=== PATIENT | female | born 1980 | race African-American/Black ===

== ENCOUNTER 2016-12-05 14:24 | Emergency (ER) | payer MEDICAID ==
[2016-12-05 15:00] LABS: BASOPHILS 0.1 % (0.0-2.0); EOSINOPHILS 0 % (0-7); HEMATOCRIT 43.7 % (36.0-48.0); HEMOGLOBIN 14.4 g/dL (12-16); IMMATURE GRANULOCYTES 0.6 % (0-5); LYMPHOCYTES 12.1 % (15-50); MCH 32.4 pg (26.0-34.0); MCV 98.2 fL (80.0-100.0); MEAN PLATELET VOLUME 9.8 fL (7.4-10.4); NEUTROPHILS 77.2 % (40-80); PLATELET COUNT 114 10x3/uL (130-400); RBC 4.45 10x6/uL (4.00-5.40); RDW 12.6 % (11.5-14.5); WBC 14.3 10x3/uL (4.8-10.8)
[2016-12-05 15:03] LABS: APPEARANCE HAZY (CLEAR); BILIRUBIN NEGATIVE (NEGATIVE); COLOR DK YELLOW (YELLOW); GLUCOSE NEGATIVE (NEGATIVE); KETONE SMALL mg/dL (NEGATIVE); LEUKOCYTE ESTERASE 2+ (NEGATIVE); NITRITE NEGATIVE (NEGATIVE); PROTEIN 1+ mg/dL (NEGATIVE); UROBILINOGEN NORMAL (NORMAL)
[2016-12-05 15:11] LABS: BACTERIA MANY /hpf (NONE SEEN); MUCUS <1+ /lpf (NONE SEEN); RED CELLS - URINE 0-5 /hpf (0-5); WHITE CELLS - URINE >50 /hpf (0-5)
[2016-12-05 15:25] LABS: HCG SERUM NEGATIVE (NEGATIVE)
[2016-12-05 15:48] LABS: ALBUMIN 3.8 g/dL (3.4-5.0); ALKALINE PHOSPHATASE 97 U/L (46-116); ALT (SGPT) 66 U/L (10-68); BILIRUBIN - TOTAL 1.33 mg/dL (0.2-1.3); CALC OSMOLALITY 275 mosm/kg (275-300); CALCIUM 9.6 mg/dL (8.5-10.1); CHLORIDE - SERUM 101 mmol/L (98-107); CREATININE - SERUM 1.1 mg/dL (0.6-1.3); GLUCOSE 98 mg/dL (74-106); POTASSIUM - SERUM 3.8 mmol/L (3.5-5.1); PROTEIN - SERUM 8.6 g/dL (6.4-8.2); SODIUM 139 mmol/L (136-145); UREA NITROGEN 8 mg/dL (7-18); eGFR NON AFRICAN AMERICAN 60 mL/min (90-120)
== END 2016-12-05 20:41 | disposition home or self-care (01) ==
LOC: D.ER 14:24
PROVIDERS: Emergency Medicine
DX: N10 Acute pyelonephritis (principal); N76.0 Acute vaginitis; B96.89 Other specified bacterial agents as the cause of diseases classified elsewhere; N39.0 Urinary tract infection, site not specified; N23 Unspecified renal colic; F17.200 Nicotine dependence, unspecified, uncomplicated

== ENCOUNTER 2017-10-20 14:21 | Emergency (ER) | payer MEDICAID | END 2017-10-20 15:12 | disposition home or self-care (01) | LOC: D.ER 14:21 | DX: J06.9 Acute upper respiratory infection, unspecified (principal); J01.90 Acute sinusitis, unspecified; F17.200 Nicotine dependence, unspecified, uncomplicated ==

== ENCOUNTER 2017-11-01 12:49 | Emergency (ER) | payer MEDICAID ==
[2017-11-01 14:29] LABS: BASOPHILS 0.1 % (0-2); EOSINOPHILS 0.1 % (0-7); HEMATOCRIT 44.5 % (36.0-48.0); HEMOGLOBIN 14.8 g/dL (12-16); IMMATURE GRANULOCYTES 0.3 % (0-5); LYMPHOCYTES 8.8 % (15-50); MCH 33.4 pg (26.0-34.0); MCHC 33.3 g/dL (31.0-37.0); MCV 100.5 fL (80.0-100.0); MEAN PLATELET VOLUME 9.8 fL (7.4-10.4); NEUTROPHILS 84.7 % (40-80); PLATELET COUNT 182 10x3/uL (130-400); RBC 4.43 10x6/uL (4.00-5.40); RDW 12.9 % (11.5-14.5); WBC 7.8 10x3/uL (4.8-10.8)
[2017-11-01 14:47] LABS: APPEARANCE HAZY (CLEAR); BILIRUBIN NEGATIVE (NEGATIVE); COLOR YELLOW (YELLOW); GLUCOSE NEGATIVE (NEGATIVE); KETONE MODERATE mg/dL (NEGATIVE); NITRITE NEGATIVE (NEGATIVE); PROTEIN NEGATIVE (NEGATIVE); SPECIFIC GRAVITY 1.015 (1.005-1.020); UROBILINOGEN NORMAL (NORMAL)
[2017-11-01 14:55] LABS: ALKALINE PHOSPHATASE 66 U/L (46-116); ALT (SGPT) 19 U/L (10-68); BILIRUBIN - TOTAL 0.99 mg/dL (0.2-1.3); CALC OSMOLALITY 269 mosm/kg (275-300); CALCIUM 9.1 mg/dL (8.5-10.1); CARBON DIOXIDE 25.9 mmol/L (21.0-32.0); CHLORIDE - SERUM 100 mmol/L (98-107); CREATININE - SERUM 0.9 mg/dL (0.6-1.3); GLUCOSE 87 mg/dL (74-106); POTASSIUM - SERUM 4.3 mmol/L (3.5-5.1); PROTEIN - SERUM 7.5 g/dL (6.4-8.2); SODIUM 136 mmol/L (136-145); UREA NITROGEN 9 mg/dL (7-18); eGFR NON AFRICAN AMERICAN 75 mL/min (90-120)
[2017-11-01 14:57] LABS: HCG URINE NEGATIVE (NEGATIVE)
== END 2017-11-01 16:50 | disposition home or self-care (01) ==
LOC: D.ER 12:49
PROVIDERS: Emergency Medicine
DX: R11.10 Vomiting, unspecified (principal); B34.9 Viral infection, unspecified; F17.200 Nicotine dependence, unspecified, uncomplicated

== ENCOUNTER 2017-11-21 10:05 | Emergency (ER) | payer MEDICAID | END 2017-11-21 12:17 | disposition home or self-care (01) | LOC: D.ER 10:05 | DX: S09.90XA Unspecified injury of head, initial encounter (principal); S05.12XA Contusion of eyeball and orbital tissues, left eye, initial encounter; V49.9XXA Car occupant (driver) (passenger) injured in unspecified traffic accident, initial encounter; Y93.89 Activity, other specified; Y92.410 Unspecified street and highway as the place of occurrence of the external cause; S16.1XXA Strain of muscle, fascia and tendon at neck level, initial encounter; S29.012A Strain of muscle and tendon of back wall of thorax, initial encounter; S39.012A Strain of muscle, fascia and tendon of lower back, initial encounter; M62.838 Other muscle spasm ==

== ENCOUNTER 2018-05-01 08:27 | Emergency (ER) | payer MEDICAID ==
[~2018-05-01] VITALS: Ht 170.2 cm; Wt 73.2 kg
[2018-05-01 08:34] VITALS: Ht 170.2 cm; Wt 73.2 kg
[2018-05-01 08:53] LABS: APPEARANCE CLEAR (CLEAR); BILIRUBIN NEGATIVE (NEGATIVE); COLOR YELLOW (YELLOW); GLUCOSE NEGATIVE (NEGATIVE); KETONE NEGATIVE (NEGATIVE); NITRITE NEGATIVE (NEGATIVE); PROTEIN NEGATIVE (NEGATIVE); SPECIFIC GRAVITY 1.005 (1.005-1.020); UROBILINOGEN NORMAL (NORMAL)
[2018-05-01 08:54] LABS: RED CELLS - URINE 0-5 /hpf (0-5); WHITE CELLS - URINE 0-5 /hpf (0-5)
[2018-05-01 08:55] LABS: BACTERIA FEW /hpf (NONE SEEN)
[2018-05-01 09:08] LABS: BASOPHILS 0.5 % (0-2); EOSINOPHILS 0.6 % (0-7); HEMATOCRIT 40.7 % (36.0-48.0); HEMOGLOBIN 13.5 g/dL (12-16); IMMATURE GRANULOCYTES 0.2 % (0-5); LYMPHOCYTES 48.1 % (15-50); MCHC 33.2 g/dL (31.0-37.0); MCV 99.5 fL (80.0-100.0); MEAN PLATELET VOLUME 9.7 fL (7.4-10.4); MONOCYTES 6.7 % (2-11); NEUTROPHILS 43.9 % (40-80); PLATELET COUNT 182 10x3/uL (130-400); RBC 4.09 10x6/uL (4.00-5.40); RDW 13.2 % (11.5-14.5); WBC 6.2 10x3/uL (4.8-10.8)
[2018-05-01 09:17] LABS: HCG SERUM NEGATIVE (NEGATIVE)
[2018-05-01 09:20] LABS: ALBUMIN 3.9 g/dL (3.4-5.0); ALKALINE PHOSPHATASE 66 U/L (46-116); ALT (SGPT) 19 U/L (10-68); BILIRUBIN - TOTAL 0.56 mg/dL (0.2-1.3); CALC OSMOLALITY 278 mosm/kg (275-300); CALCIUM 9.3 mg/dL (8.5-10.1); CHLORIDE - SERUM 104 mmol/L (98-107); CREATININE - SERUM 0.9 mg/dL (0.6-1.3); GLUCOSE 90 mg/dL (74-106); POTASSIUM - SERUM 4.6 mmol/L (3.5-5.1); PROTEIN - SERUM 7.8 g/dL (6.4-8.2); SODIUM 141 mmol/L (136-145); UREA NITROGEN 6 mg/dL (7-18); eGFR NON AFRICAN AMERICAN 75 mL/min (90-120)
[2018-05-01] MEDS ORDERED: NORCO 7.5/325 T1 TA1 PO (10:19)
[2018-05-01 11:28] VITALS: BP 124/62
== END 2018-05-01 11:24 | disposition home or self-care (01) ==
LOC: D.ER 08:27
PROVIDERS: Emergency Medicine
DX: R10.9 Unspecified abdominal pain (principal); F17.200 Nicotine dependence, unspecified, uncomplicated

== ENCOUNTER 2018-08-17 08:10 | Emergency (ER) | payer MEDICAID ==
[~2018-08-17] VITALS: Ht 170.2 cm; Wt 68.2 kg
[~2018-08-17 08:10] MED LIST: NORCO 7.5/325 T1 TA1 PO
[2018-08-17 08:17] VITALS: Ht 170.2 cm; Wt 68.2 kg
[2018-08-17] MEDS ORDERED: CYCLOBENZAPRINE10 MG PO (09:15)
[2018-08-17] MEDS ORDERED: NORCO 7.5/325 T1 TA1 PO (09:15)
[2018-08-17 10:24] VITALS: BP 117/63
== END 2018-08-17 10:25 | disposition home or self-care (01) ==
LOC: D.ER 08:10
DX: S39.012A Strain of muscle, fascia and tendon of lower back, initial encounter (principal); W18.30XA Fall on same level, unspecified, initial encounter; Y93.89 Activity, other specified; Y92.019 Unspecified place in single-family (private) house as the place of occurrence of the external cause; F17.200 Nicotine dependence, unspecified, uncomplicated

== ENCOUNTER 2018-10-11 20:28 | Emergency (ER) | payer MEDICAID ==
[~2018-10-11] VITALS: Ht 170.2 cm; Wt 68.2 kg
[~2018-10-11 20:28] MED LIST changes: +CYCLOBENZAPRINE10 MG PO
[2018-10-11 20:41] VITALS: Ht 170.2 cm; Wt 68.2 kg
[2018-10-11 21:03] LABS: APPEARANCE CLEAR (CLEAR); BILIRUBIN NEGATIVE (NEGATIVE); COLOR YELLOW (YELLOW); GLUCOSE NEGATIVE (NEGATIVE); KETONE NEGATIVE (NEGATIVE); NITRITE NEGATIVE (NEGATIVE); PROTEIN NEGATIVE (NEGATIVE); RED CELLS - URINE NONE SEEN /hpf (0-5); UROBILINOGEN NORMAL (NORMAL); WHITE CELLS - URINE 0-5 /hpf (0-5)
[2018-10-11 21:04] LABS: BACTERIA FEW /hpf (NONE SEEN); EPITHELIAL CELLS 0-5 /hpf (0-5)
[2018-10-11 23:27] LABS: BASOPHILS 0.2 % (0-2); EOSINOPHILS 0.6 % (0-7); HEMATOCRIT 41.4 % (36.0-48.0); HEMOGLOBIN 13.9 g/dL (12-16); IMMATURE GRANULOCYTES 0.3 % (0-5); LYMPHOCYTES 35.3 % (15-50); MCH 33.7 pg (26.0-34.0); MCHC 33.6 g/dL (31.0-37.0); MCV 100.2 fL (80.0-100.0); MEAN PLATELET VOLUME 10.3 fL (7.4-10.4); MONOCYTES 6.1 % (2-11); NEUTROPHILS 57.5 % (40-80); PLATELET COUNT 190 10x3/uL (130-400); RBC 4.13 10x6/uL (4.00-5.40); RDW 13.5 % (11.5-14.5); WBC 11.5 10x3/uL (4.8-10.8)
[2018-10-11 23:42] LABS: ALBUMIN 3.5 g/dL (3.4-5.0); ALKALINE PHOSPHATASE 67 U/L (46-116); ALT (SGPT) 21 U/L (10-68); BILIRUBIN - TOTAL 0.73 mg/dL (0.2-1.3); CALC OSMOLALITY 269 mosm/kg (275-300); CALCIUM 8.6 mg/dL (8.5-10.1); CARBON DIOXIDE 26.5 mmol/L (21.0-32.0); CHLORIDE - SERUM 103 mmol/L (98-107); CREATININE - SERUM 0.7 mg/dL (0.6-1.3); GLUCOSE 85 mg/dL (74-106); POTASSIUM - SERUM 5.8 mmol/L (3.5-5.1); PROTEIN - SERUM 7.6 g/dL (6.4-8.2); SODIUM 136 mmol/L (136-145); UREA NITROGEN 9 mg/dL (7-18); eGFR NON AFRICAN AMERICAN > 90 mL/min (90-120)
[2018-10-12] MEDS ORDERED: VOLTAREN75 MG PO (01:22)
[2018-10-12] MEDS ORDERED: ROBAXIN500 MG PO (01:22)
[2018-10-12 03:56] VITALS: BP 132/79
== END 2018-10-12 03:56 | disposition home or self-care (01) ==
LOC: D.ER 20:28
PROVIDERS: Family Medicine
DX: M54.5 Low back pain (principal); M54.31 Sciatica, right side; F17.200 Nicotine dependence, unspecified, uncomplicated

== ENCOUNTER 2019-02-18 00:09 | Emergency (ER) | payer MEDICAID ==
[~2019-02-18] VITALS: Ht 170.2 cm; Wt 68.9 kg
[~2019-02-18 00:09] MED LIST changes: +ROBAXIN500 MG PO; +VOLTAREN75 MG PO
[2019-02-18 00:24] VITALS: Ht 170.2 cm; Wt 68.9 kg
[2019-02-18] MEDS ORDERED: NAPROSYN500 MG PO (02:16)
[2019-02-18] MEDS ORDERED: CYCLOBENZAPRINE10 MG PO (02:16)
[2019-02-18 02:31] VITALS: BP 118/50
== END 2019-02-18 02:32 | disposition home or self-care (01) ==
LOC: D.ER 00:09
DX: M54.41 Lumbago with sciatica, right side (principal)

== ENCOUNTER 2019-05-22 17:52 | Emergency (ER) | payer MEDICAID ==
[~2019-05-22] VITALS: Ht 170.2 cm; Wt 70.5 kg
[~2019-05-22 17:52] MED LIST changes: +NAPROSYN500 MG PO
[2019-05-22 17:55] VITALS: Ht 170.2 cm; Wt 70.5 kg
[2019-05-22 18:21] LABS: APPEARANCE CLEAR (CLEAR); BILIRUBIN NEGATIVE (NEGATIVE); COLOR YELLOW (YELLOW); GLUCOSE NEGATIVE (NEGATIVE); KETONE NEGATIVE (NEGATIVE); NITRITE NEGATIVE (NEGATIVE); PROTEIN TRACE mg/dL (NEGATIVE); UROBILINOGEN NORMAL (NORMAL)
[2019-05-22 18:23] LABS: BACTERIA MODERATE /hpf (NONE SEEN); EPITHELIAL CELLS 0-5 /hpf (0-5)
[2019-05-22] MEDS ORDERED: MACROBID100 MG PO (19:59)
[2019-05-22] MEDS ORDERED: PHENAZOPYRIDIN200 MG PO (19:59)
[2019-05-22 20:08] VITALS: BP 136/72
== END 2019-05-22 20:11 | disposition home or self-care (01) ==
LOC: D.ER 17:52
PROVIDERS: Family Medicine
DX: N39.0 Urinary tract infection, site not specified (principal)